=== PATIENT | female | born 1990 | race Caucasian/White ===

== ENCOUNTER 2019-05-13 21:36 | Emergency (ER) | payer SELFPAY ==
[~2019-05-13] VITALS: Ht 165.1 cm; Wt 110.0 kg
[~2019-05-13 21:36] MED LIST: FOLI-43 PO; PREN-88 PO
[2019-05-14] MEDS ORDERED: NEOMYCIN-POLYMYXIN B-HYDROCORTISONE 1% OTIC SOLN 10ML RIGHT EAR ONE (00:45)
[2019-05-14] MEDS ORDERED: KETOROLAC 30MG/ML VIAL IM ONE (00:45)
[2019-05-14] MEDS ORDERED: AMOXICILLIN/POTASSIUM CLAVULANATE 875/125MG TAB PO ONE (00:45)
[2019-05-14 01:13] VITALS: BP 122/70
== END 2019-05-14 01:10 | disposition home or self-care (01) ==
LOC: ER 21:36
DX: H60.91 Unspecified otitis externa, right ear (principal); E11.9 Type 2 diabetes mellitus without complications
CPT/HCPCS: 96372; 99283; J1885

== ENCOUNTER 2021-02-13 20:16 | Emergency (ER) | payer MEDICAID ==
[~2021-02-13] VITALS: Ht 152.4 cm; Wt 100.0 kg
[2021-02-13 21:49] LABS: BASOPHILS % 0.4 % (0.0-2.0); EOSINOPHILS % 1.6 % (0.0-5.0); HEMATOCRIT. 33.7 % (36.0-48.0); HEMOGLOBIN. 11.5 g/dL (12.0-16.0); MEAN CORPUSCULAR HEMOGLOBIN 29.4 pg (28.0-32.0); MEAN CORPUSCULAR VOLUME 86.2 fL (81.0-99.0); MEAN PLATELET VOLUME 6.9 fl (7.4-10.4); MONOCYTES % 9.1 % (2.0-8.0); NEUTROPHILS % 64.9 % (40.0-76.0); PLATELET 314 x1000/uL (130-400); RED BLOOD CELL COUNT 3.91 mill/uL (4.2-5.4); RED CELL DISTRIBUTION WIDTH 15.5 % (11.6-14.6)
[2021-02-13 21:56] LABS: CHLORIDE 106 mEq/L (98-107)
[2021-02-13 22:20] LABS: B-HCG QUANTITATIVE 6377 mIU/mL (<3)
[2021-02-13 22:24] LABS: CLARITY URINE CLOUDY (CLEAR); COLOR URINE YELLOW (YELLOW); KETONES URINE NEGATIVE (NEGATIVE); LEUKOCYTE ESTERASE URINE 1+ (NEGATIVE); NITRITE URINE NEGATIVE (NEGATIVE); OCCULT BLOOD URINE 2+ (NEGATIVE); PH URINE 5.5 (4.5-8.0); PROTEIN URINE NEGATIVE (NEGATIVE); SPECIFIC GRAVITY URINE 1.028 (1.005-1.030); UROBILINOGEN URINE 0.2 E.U./dL (0.2-1.0)
[2021-02-14] MEDS ORDERED: CEPHALEXIN 250MG CAPSULE PO ONE (00:30)
[2021-02-14 02:00] VITALS: BP 104/51
[2021-02-14] MEDS ORDERED: CEPH500T MT (02:37)
== END 2021-02-14 02:46 | disposition home or self-care (01) ==
LOC: ER 20:16
DX: O20.0 Threatened abortion (principal); O26.891 Other specified pregnancy related conditions, first trimester; Z79.899 Other long term (current) drug therapy; Z3A.09 9 weeks gestation of pregnancy
CPT/HCPCS: 36415; 76801; 80053; 81003; 81025; 84702; 85025; 86850; 86900; 99284

== ENCOUNTER 2021-02-17 21:57 | Emergency (ER) | payer MEDICAID ==
[~2021-02-17] VITALS: Ht 152.4 cm; Wt 103.0 kg
[~2021-02-17 21:57] MED LIST changes: +CEPH500T MT
[2021-02-17] MEDS ORDERED: ACETAMINOPHEN 325MG TABLET PO ONE (22:45)
[2021-02-17 22:56] LABS: BASOPHILS % 0.3 % (0.0-2.0); HEMATOCRIT. 32.8 % (36.0-48.0); HEMOGLOBIN. 11.4 g/dL (12.0-16.0); LYMPHOCYTES % 31.5 % (20.0-50.0); MEAN CORPUSCULAR HEMOGLOBIN 29.6 pg (28.0-32.0); MEAN CORPUSCULAR VOLUME 85.5 fL (81.0-99.0); MEAN PLATELET VOLUME 6.7 fl (7.4-10.4); MONOCYTES % 6.5 % (2.0-8.0); NEUTROPHILS % 59.7 % (40.0-76.0); PLATELET 320 x1000/uL (130-400); RED BLOOD CELL COUNT 3.84 mill/uL (4.2-5.4); RED CELL DISTRIBUTION WIDTH 15.5 % (11.6-14.6)
[2021-02-17 23:03] LABS: CHLORIDE 107 mEq/L (98-107)
[2021-02-17 23:06] LABS: CLARITY URINE CLEAR (CLEAR); COLOR URINE YELLOW (YELLOW); KETONES URINE NEGATIVE (NEGATIVE); LEUKOCYTE ESTERASE URINE NEGATIVE (NEGATIVE); NITRITE URINE NEGATIVE (NEGATIVE); OCCULT BLOOD URINE 3+ (NEGATIVE); PROTEIN URINE 1+ (NEGATIVE); SPECIFIC GRAVITY URINE 1.031 (1.005-1.030); UROBILINOGEN URINE 0.2 E.U./dL (0.2-1.0)
[2021-02-17 23:17] LABS: *AMPHETAMINES SCREEN URINE NEGATIVE (NEGATIVE); *BARBITURATES SCREEN URINE NEGATIVE (NEGATIVE)
[2021-02-17 23:18] LABS: *BENZODIAZEPINES SCREEN URINE NEGATIVE (NEGATIVE); *COCAINE SCREEN URINE NEGATIVE (NEGATIVE); CANNABINOID URINE SCREEN NEGATIVE (NEGATIVE); METHADONE URINE SCREEN NEGATIVE (NEGATIVE); OPIATES URINE SCREEN NEGATIVE (NEGATIVE); PHENCYCLIDINE URINE SCREEN NEGATIVE (NEGATIVE)
[2021-02-17 23:26] LABS: B-HCG QUANTITATIVE 4274 mIU/mL (<3)
[2021-02-18] MEDS ORDERED: CEPH500C2 MT (01:11)
[2021-02-18] MEDS ORDERED: CEPHALEXIN 250MG CAPSULE PO NR (01:30)
[2021-02-18 01:51] VITALS: BP 105/60
== END 2021-02-18 02:07 | disposition home or self-care (01) ==
LOC: ER 21:57
DX: O02.1 Missed abortion (principal); O23.41 Unspecified infection of urinary tract in pregnancy, first trimester; O99.011 Anemia complicating pregnancy, first trimester; Z3A.01 Less than 8 weeks gestation of pregnancy
CPT/HCPCS: 36415; 76801; 80053; 80305; 81003; 81025; 84702; 85025; 86850; 86900; 99284

== ENCOUNTER 2021-10-30 23:10 | Emergency (ER) | payer MEDICAID ==
[~2021-10-30] VITALS: Ht 152.4 cm; Wt 111.0 kg
[~2021-10-30 23:10] MED LIST changes: +CEPH500C2 MT
[2021-10-31 00:54] LABS: BASOPHILS % 0.2 % (0.0-2.0); EOSINOPHILS % 1.5 % (0.0-5.0); HEMATOCRIT. 33.5 % (36.0-48.0); HEMOGLOBIN. 11.3 g/dL (12.0-16.0); LYMPHOCYTES % 26.9 % (20.0-50.0); MEAN CORPUSCULAR VOLUME 85.7 fL (81.0-99.0); MEAN PLATELET VOLUME 7.1 fl (7.4-10.4); MONOCYTES % 7.6 % (2.0-8.0); NEUTROPHILS % 63.8 % (40.0-76.0); PLATELET 330 x1000/uL (130-400); RED BLOOD CELL COUNT 3.91 mill/uL (4.2-5.4); RED CELL DISTRIBUTION WIDTH 13.5 % (11.6-14.6)
[2021-10-31 01:06] LABS: CHLORIDE 107 mEq/L (98-107)
[2021-10-31 01:29] LABS: B-HCG QUANTITATIVE 15872 mIU/mL (<3)
[2021-10-31 02:36] VITALS: BP 105/68
== END 2021-10-31 02:39 | disposition home or self-care (01) ==
LOC: ER 23:10
DX: O46.91 Antepartum hemorrhage, unspecified, first trimester (principal); Z3A.01 Less than 8 weeks gestation of pregnancy
CPT/HCPCS: 36415; 76801; 80053; 84702; 85025; 86850; 86900; 99284